=== PATIENT | female | born 1950 | race Caucasian/White ===

== ENCOUNTER 2018-12-19 13:34 | Emergency (ER) | payer OTHER, BC ==
[2018-12-19 13:37] VITALS: TEMP 97.7; BMI 25.2
--- NOTE | 2018-12-19 14:04 | PDOC ---
History of Present Illness - General Chief Complaint: Lightheaded Stated Complaint: DIZZY Time Seen by Provider: 12/19/18 13:47 - History of Present Illness Initial Comments: 12/19/18 15:37 68f with pmh of htn, hld, afib on eliquis presents to the ED with episode of lightheadedness today where she felt she was almost going to pass out for 30min. Similar episode the past couple days, similar duration, worst on . Episodes were unprovoked. She also complains of chronic pain in the back of the head and neck which got worse after being manipulated by physical therapy. Headache is no 2/10 but get get worse to 5/10 occasionally. Discomfort is now in the temporal region. Denies sensation of movement during the episodes. Denies being out side in the sun, had brunch today. Denies fever, chills, palpitation, change in vision, chest pain, sob. Past History - Past Medical History Allergies/Adverse Reactions: Allergies Allergy/AdvReac Type Severity Reaction Status Date / Time No Known Allergies Allergy Verified 12/19/18 13:37 Home Medications: Ambulatory Orders Atorvastatin Ca [Lipitor] 10 mg PO DAILY 01/03/12 Calcium Carbonate [Calcium] 600 mg PO DAILY 01/03/12 Irbesartan [Avapro (Nf)] 75 mg PO DAILY 01/03/12 Metoprolol Succinate [Toprol XL] 25 mg PO DAILY 01/03/12 Propafenone HCl [Propafenone HCl ER] 325 mg PO BID 07/24/12 Apixaban [Eliquis] 5 mg PO DAILY 12/19/18 Ranitidine HCl [Zantac] 150 mg PO BID 12/19/18 Anemia: No Asthma: No Cardiac Disorders: Yes (A-FIB) CVA: No COPD: No CHF: No GI Disorders: Yes (DIVERTICULITIS) HTN: Yes Hypercholesterolemia: Yes - Surgical History Abdominal Surgery: Yes (Hysterectomy) - Suicide/Smoking/Psychosocial Hx Smoking Status: No Smoking History: Never smoked Number of Cigarettes Smoked Daily: 0 Hx Alcohol Use: No Drug/Substance Use Hx: No Substance Use Type: None Review of Systems - Review of Systems Able to Perform ROS?: Yes Is the patient limited Malagasy proficient: No Constitutional: No: Symptoms Reported HEENTM: No: Symptoms Reported Respiratory: No: Symptoms reported Cardiac (ROS): No: Symptoms Reported ABD/GI: No: Symptoms Reported : No: Symptoms Reported Musculoskeletal: No: Symptoms Reported Integumentary: No: Symptoms Reported Neurological: Yes: See HPI All Other Systems: Reviewed and Negative *Physical Exam - Vital Signs Last Vital Signs Temp Pulse Resp BP Pulse Ox 97.7 F 61 18 142/64 97 12/19/18 13:35 12/19/18 13:35 12/19/18 13:35 12/19/18 13:35 12/19/18 13:35 - Physical Exam General Appearance: Yes: Nourished, Appropriately Dressed, Apparent Distress HEENT: positive: EOMI, KENDY, Normal ENT Inspection Neck: negative: Tender midline Respiratory/Chest: positive: Lungs Clear, Normal Breath Sounds. negative: Chest Tender, Respiratory Distress Cardiovascular: positive: Regular Rhythm, Regular Rate, S1, S2 Gastrointestinal/Abdominal: positive: Normal Bowel Sounds, Flat, Soft. negative : Tender Musculoskeletal: positive: Normal Inspection. negative: CVA Tenderness Extremity: positive: Normal Capillary Refill, Normal Inspection, Normal Range of Motion Integumentary: positive: Normal Color, Dry, Warm Neurologic: positive: Fully Oriented, Alert, Normal Mood/Affect. negative: Numbness ED Treatment Course - LABORATORY CBC & Chemistry Diagram: 12/19/18 14:58 12/19/18 14:58 Medical Decision Making - Medical Decision Making 12/19/18 15:46 68F with h/o afib presents with presyncopal episode the past 3 days 30min each. Will r/o paroxysmal arrythmia, LA, stoke vs orthostatic hypotension and vasovagal. 12/19/18 16:25 EKG: Normal sinus rhythm, Nonspecific ST and T wave abnormality. CXR: A single apical lordotic view reveals well expanded lungs with some linear scarring or atelectasis at the left base, normal mediastinum and sharp angles. The bones and soft tissues are intact. Correlation recommended. All labs within normal limit, will repeat troponin at 6pm. 12/19/18 18:50 Second troponin negative. Head CtA: normal study. OK to dc with follow up *DC/Admit/Observation/Transfer Diagnosis at time of Disposition: Pre-syncope - Discharge Dispostion Disposition: HOME Condition at time of disposition: Improved Decision to Admit order: No - Referrals Referrals: Madonna Nettles MD [Primary Care Provider] - - Patient Instructions Printed Discharge Instructions: DI for Dizziness-Nonvertigo, Combating Dizziness in Older Adults Additional Instructions: Follow up with your primary care provider within the next 2-3 days. Come back to the emergency department for any new, worsening or concerning symptom. - Post Discharge Activity
--- NOTE | 2018-12-19 14:37 | PDOC ---
Documentation entered by Dez Larose SCRIBE, acting as scribe for Kerline Martinez MD. Kerline Martinez MD: This documentation has been prepared by the Thuan aponte Daniel, SCRIBE, under my direction and personally reviewed by me in its entirety. I confirm that the documentation accurately reflects all work, treatment, procedures, and medical decision making performed by me. Attending Attestation - Resident Resident Name: Brian Escobedo - ED Attending Attestation I have performed the following: I have examined & evaluated the patient, The case was reviewed & discussed with the resident, I agree w/resident's findings & plan - HPI HPI: 12/19/18 14:38 The patient is a 68 year old female with a past medical history of afib (eliquis ), HTN, and HLD here today for evaluation of presyncopal episode. Patient reports that she had a presyncopal episode today while standing in the [employer] that last for about 30 minutes. She denies any loss of consciousness and notes 2 similar episodes in the past 2 days. She also notes a mild headache that has gotten worse since PT on (12/17/18). Patient denies Denies fever, chills. Denies chest pain, shortness of breath. Denies nausea, vomiting, diarrhea, abdominal pain. Allergies: NKA PCP: Madonna Nettles - Physicial Exam PE: 12/19/18 17:16 Agree with the resident's HPI and PE as documented in the electronic medical record. NAD, EOMI, PERRL, nl conjunctiva, anicteric; neck supple. lungs clear, RRR, abdomen soft nontender. Back nontender. MEAD x4, no focal neuro deficits. No peripheral edema. normal color for ethnicity, WWP. no calf tenderness. Alert, oriented to person time and place. No carotid bruit, CN II-XII grossly intact. Strength prox and distally 5/5 throughout. Sensation grossly intact to light touch. MEAD x4. No cerebellar signs, no dysmetria, bilateral finger to nose and heel to marroquin equal and symmetric. Speech clear. - Medical Decision Making 12/19/18 17:14 See HPI for details. Prior notes reviewed, including admissions, discharges and consultations. Vital signs reviewed, wnl. DDX near syncope: ACS, arrhythmia, anemia, dehydration, metabolic derangements, electrolyte abnormalities; carotid stenosis, dissection/aneurysm, CVA. laboratory results and imaging reviewed, basic labs and lytes wnl, UA neg/clear Cardiac panel_neg trop x2 EKG normal sinus rhythm, no interval abnormalities, narrow QRS, ST and T wave segments and morphology normal. Nonspecific T wave abnormalities ED course -interventions: IVF - 2 trop neg, no cp or syncope or sob - on reassessment - CTA neg for aneurysm/bleed, no e/o CVA on CTH. - ambulated without difficulty, neuro intact. Pt to be discharged in stable condition. Patient and family made aware of clinical impression, treatment recommendations and disposition plan, return precautions discussed (including but not limited to new or persistent/worsening symptoms, pain, fevers, or signs of infection, chest pain, respiratory distress , inability to tolerate oral intake, dehydration, syncope, or neurologic changes ). Follow up with PMD and/or specialist as recommended, follow up information provided, take medications as instructed for duration of time. continue with supportive care, avoid triggers and precipitants. All questions answered to patient's satisfaction and expressed understanding and comfort with this. At the time of discharge, the patient is alert, clinically improved, tolerating po and verbalizes understanding of instructions, satisfied with the care received and felt comfortable with the plan. Patient does not suffer from an acute life- threatening medical condition at this time and is safe for outpatient follow- up. 12/19/18 17:21 12/19/18 17:21 12/19/18 18:51 12/19/18 18:51 Heart Score/ECG Review #1 ECG reviewed & interpreted by me at: 14:00 General ECG Interpretation: Sinus Rhythm, Normal Rate, Normal Intervals Compared to previous ECG there are: No significant change 12/19/18 14:37 EKG normal sinus rhythm at 60 bpm, no interval abnormalities, narrow QRS, ST and T wave segments and morphology normal. Nonspecific T wave abnormalities
[2018-12-19 15:12] LABS: BASO % 0.7 % (0-2.0); EOS % 1.9 % (0-4.5); HEMATOCRIT 41.4 % (32.4-45.2); LYMPH % 24.3 % (8-40); MCH 32.2 pg (25.7-33.7); MCHC 33.8 g/dl (32.0-36.0); MEAN CELL VOLUME 95.5 fl (80-96); MEAN PLT VOLUME 7.2 fl (7.5-11.1); MONO % 11.7 % (3.8-10.2); NEUT % 61.4 % (42.8-82.8); RBC 4.34 M/mm3 (3.60-5.2); WHITE BLOOD COUNT 4.9 K/mm3 (4.0-10.0)
[2018-12-19 15:24] LABS: PLATELET COUNT 244 K/MM3 (134-434)
[2018-12-19 15:31] LABS: EPI CELLS 0.6 /HPF (0-5/HPF); HYALINE CASTS 0 /lpf (0-8); URINE APPEARANCE CLEAR; URINE BACTERIA 26.1 /hpf (NEGATIVE); URINE BILIRUBIN NEGATIVE (NEGATIVE); URINE COLOR YELLOW; URINE GLUCOSE (UA) NEGATIVE (NEGATIVE); URINE KETONE NEGATIVE (NEGATIVE); URINE LEUK ESTERASE TRACE (NEGATIVE); URINE NITRITE NEGATIVE (NEGATIVE); URINE PROTEIN NEGATIVE (NEGATIVE); URINE RBC 0 /hpf (0-4); URINE UROBILINOGEN 0.2 mg/dL (0.2-1.0); URINE WBC 1 /hpf (0-5)
[2018-12-19 15:40] LABS: ALBUMIN 3.9 g/dl (3.4-5.0); ALK PHOS 80 U/L (45-117); ANION GAP 8 MMOL/L (8-16); BILIRUBIN,TOTAL 0.4 mg/dL (0.2-1); BLOOD UREA NITROGEN 16.6 mg/dL (7-18); CALCIUM 9.2 mg/dL (8.5-10.1); CHLORIDE 109 mmol/L (98-107); CO2 23 mmol/L (21-32); CREATININE 0.6 mg/dL (0.55-1.3); GLUCOSE,RANDOM 96 mg/dL (74-106); SGOT/AST 17 U/L (15-37); SGPT/ALT 29 U/L (13-61); SODIUM 140 mmol/L (136-145); TOT PROT 7.3 g/dl (6.4-8.2)
[2018-12-19 16:15] VITALS: BP 130/68; PULSE 58
[2018-12-19] MEDS ORDERED: SODIUM CHLORIDE 0.9% 500 ML INFUS.BAG IV ONE (16:30)
--- NOTE | 2018-12-21 00:25 | EKG ---
Test Reason : Blood Pressure : / mmHG Vent. Rate : 060 BPM Atrial Rate : 060 BPM P-R Int : 182 ms QRS Dur : 076 ms QT Int : 428 ms P-R-T Axes : 058 018 048 degrees QTc Int : 428 ms POOR DATA QUALITY, INTERPRETATION MAY BE ADVERSELY AFFECTED NORMAL SINUS RHYTHM NONSPECIFIC ST AND T WAVE ABNORMALITY ABNORMAL ECG WHEN COMPARED WITH ECG OF 07-SEP-2012 11:17, NO SIGNIFICANT CHANGE WAS FOUND Confirmed by MD Gali, Armen ([id number]) on 12/21/2018 12:24:59 AM Referred By: Confirmed By:Armen Talbert MD
== END 2018-12-19 19:05 | disposition home or self-care (01) ==
LOC: JER 13:34
PROC: 3E0337Z Introduction of Electrolytic and Water Balance Substance into Peripheral Vein, Percutaneous Approach (ICD-10-PCS; principal; 2018-12-19)
DX: R55 Syncope and collapse (principal); R42 Dizziness and giddiness; I10 Essential (primary) hypertension; E78.00 Pure hypercholesterolemia, unspecified; I48.91 Unspecified atrial fibrillation; Z79.01 Long term (current) use of anticoagulants
CPT/HCPCS: 36415; 70450-TC; 70496-TC; 70498-TC; 71045-TC-FY; 80053; 81003; 84484; 85025; 87086; 93005; 93010; 99283-25

== ENCOUNTER 2018-12-21 19:20 | Emergency (ER) | payer OTHER, BC ==
[2018-12-21 19:24] VITALS: BP 125/62; PULSE 64; TEMP 97.9; BMI 25.2
--- NOTE | 2018-12-21 20:45 | PDOC ---
History of Present Illness - General Chief Complaint: Revisit,Radiology Variance Stated Complaint: SENT FOR ADMISSION - History of Present Illness Initial Comments: The pt is a 68F w/ a history of HTN who presents for evaluation after CTA head and neck was significant for concern of L vertebral artery lumenal narrowing versus dissection. The pt reports persistent pain in her left neck pain as well as a left sided headache. He denies any change in her symptoms since being evaluated on 12/19/18. She denies changes in vision, falls, syncope, chest pain, trouble breathing. Her neck pain is achy, intermittent, worse with movement, alleviated by rest, non-radiating. 12/21/18 21:11 Past History - Past Medical History Allergies/Adverse Reactions: Allergies Allergy/AdvReac Type Severity Reaction Status Date / Time No Known Allergies Allergy Verified 12/21/18 19:24 Home Medications: Ambulatory Orders Atorvastatin Ca [Lipitor] 10 mg PO DAILY 01/03/12 Calcium Carbonate [Calcium] 600 mg PO DAILY 01/03/12 Irbesartan [Avapro (Nf)] 75 mg PO DAILY 01/03/12 Metoprolol Succinate [Toprol XL] 25 mg PO DAILY 01/03/12 Propafenone HCl [Propafenone HCl ER] 325 mg PO BID 07/24/12 Apixaban [Eliquis] 5 mg PO DAILY 12/19/18 Ranitidine HCl [Zantac] 150 mg PO BID 12/19/18 Anemia: No Asthma: No Cardiac Disorders: Yes (A-FIB) CVA: No COPD: No CHF: No GI Disorders: Yes (DIVERTICULITIS) HTN: Yes Hypercholesterolemia: Yes - Surgical History Abdominal Surgery: Yes (Hysterectomy) - Suicide/Smoking/Psychosocial Hx Smoking Status: No Smoking History: Never smoked Number of Cigarettes Smoked Daily: 0 Hx Alcohol Use: No Drug/Substance Use Hx: No Substance Use Type: None Review of Systems - Review of Systems Able to Perform ROS?: Yes Comments:: GENERAL/CONSTITUTIONAL: No fever or chills. No weakness HEAD, EYES, EARS, NOSE AND THROAT: No change in vision. No ear pain or discharge. No sore throat CARDIOVASCULAR: No chest pain or shortness of breath RESPIRATORY: Denies cough, hemoptysis GASTROINTESTINAL: No nausea, vomiting, diarrhea or constipation GENITOURINARY: No dysuria, frequency, or change in urination SKIN: No rash NEUROLOGIC: No vertigo, loss of consciousness, or change in strength/sensation ENDOCRINE: No increased thirst. No abnormal weight change HEMATOLOGIC/LYMPHATIC: No anemia, easy bleeding, or history of blood clots. ALLERGIC/IMMUNOLOGIC: No hives or skin allergy 12/21/18 20:45 Is the patient limited Peruvian proficient: No *Physical Exam - Vital Signs Last Vital Signs Temp Pulse Resp BP Pulse Ox 97.9 F 64 18 125/62 97 12/21/18 19:22 12/21/18 19:22 12/21/18 19:22 12/21/18 19:22 12/21/18 19:22 - Physical Exam Comments: GENERAL: Awake, alert, and oriented to person/place/time, in no acute distress HEAD: No signs of trauma, normocephalic, atraumatic EYES: PERRLA, EOMI, sclera anicteric, conjunctiva clear ENT: Hearing grossly normal, nares patent, oropharynx clear without exudates. Moist mucosa LUNGS: No distress, speaks in full sentences, clear to auscultation bilaterally HEART: Regular rate and rhythm, normal S1 and S2, no murmurs appreciated, peripheral pulses normal and equal bilaterally ABDOMEN: Soft, nontender, normoactive bowel sounds. No guarding, no rebound EXTREMITIES: Normal inspection, Normal range of motion, no edema. No clubbing or cyanosis NEUROLOGICAL: Cranial nerves II through XII grossly intact. Normal speech, normal gait, no focal sensorimotor deficits SKIN: Warm, Dry 12/21/18 20:45 Medical Decision Making - Medical Decision Making The pt is a 68F who presents for evaluation 2/2 radiology read variance concerning for left proximal vertebral artery luminal stenosis versus dissection ED Course MRA head/neck w/ patent vertebral arteries w/o dissection Discomfort likely MSK Plan for D/C w/ PCP f/u Referral for OMM also given Discharge instructions and return precautions given Pt in agreement and verbalized understanding Dispo: home *DC/Admit/Observation/Transfer Diagnosis at time of Disposition: Neck pain - Discharge Dispostion Disposition: HOME Condition at time of disposition: Stable Decision to Admit order: No - Referrals Referrals: Madonna Nettles MD [Primary Care Provider] - - Patient Instructions Printed Discharge Instructions: DI for Neck Pain Additional Instructions: You were seen in the Emergency Department for evaluation of neck pain. Your MRA was negative for vertebral artery dissection or narrowing. Review the handout provided at discharge and a referral was given for [facility]. Follow up with your primary care provider. Return to the Emergency Department if you develop fevers/chills, chest pain, trouble breathing, lightheadedness, inability to tolerate food, changes in strength/sensation, worsening symptoms, or any new/concerning symptoms. - Post Discharge Activity
[2018-12-21] MEDS ORDERED: ACETAMINOPHEN 325 MG TABLET (FP) PO ONE (21:29)
[2018-12-21] MEDS ORDERED: ACETAMINOPHEN 325 MG TABLET (FP) ONE (21:37)
--- NOTE | 2018-12-22 00:07 | PDOC ---
Documentation entered by Ana Del Rio SCRIBE, acting as scribe for Tami Rodriguez DO. Tami Rodriguez DO: This documentation has been prepared by the Eliane aponte Adrianna, SCRIBE, under my direction and personally reviewed by me in its entirety. I confirm that the documentation accurately reflects all work, treatment, procedures, and medical decision making performed by me. Attending Attestation - Resident Resident Name: [email or web address] - ED Attending Attestation I have performed the following: I have examined & evaluated the patient, The case was reviewed & discussed with the resident, I agree w/resident's findings & plan - HPI HPI: The patient is a 68 year old female, with a significant PMH of HTN, HLD, diverticulitis, and Afib (on Eliquis), who presents to the ED for evaluation of abnormal findings of CTA of head and neck. Patient was informed that her CTA demonstrated left vertebral artery lumenal narrowing vs. dissection. She was advised to come to the ED for MRI. Patient endorses nck pain, but denies any new complaints. Allergies: NKA, NKDA Surgical History: Hysterectomy Social History: None reported PCP: Dr. Nettles 12/21/18 22:50 - Physicial Exam PE: Agree with resident exam. 12/21/18 22:50 - Medical Decision Making 12/22/18 00:04 68-year-old female sent for further imaging to rule out possible vertebral artery dissection MRA of the brain and neck show no evidence of dissection in the questionable area On exam patient is point tender over the right transverse process of C3/C4 reproducing chief complaints Patient advised to follow-up with the OMT clinic at [facility] for further evaluation and to refrain from aggressive physical therapy at this time Previous lightheadedness and nausea presents with pain are not present at this time
[2018-12-22] MEDS ORDERED: ACETAMINOPHEN 325 MG TABLET (FP) PO ONE (00:20)
--- NOTE | 2018-12-22 14:45 | EKG ---
Test Reason : Blood Pressure : / mmHG Vent. Rate : 056 BPM Atrial Rate : 056 BPM P-R Int : 206 ms QRS Dur : 074 ms QT Int : 430 ms P-R-T Axes : 056 039 053 degrees QTc Int : 414 ms POOR DATA QUALITY, INTERPRETATION MAY BE ADVERSELY AFFECTED SINUS BRADYCARDIA NONSPECIFIC ST ABNORMALITY ABNORMAL ECG WHEN COMPARED WITH ECG OF 19-DEC-2018 13:59, NO SIGNIFICANT CHANGE WAS FOUND Confirmed by MD HOWARD, JH ([id number]) on 12/22/2018 2:44:39 PM Referred By: Confirmed By:JH LAWRENCE MD
== END 2018-12-22 00:45 | disposition home or self-care (01) ==
LOC: JER 19:20
DX: R93.7 Abnormal findings on diagnostic imaging of other parts of musculoskeletal system (principal); M54.2 Cervicalgia
CPT/HCPCS: 70544-TC; 70547-TC; 93005; 93010; 99282-25

== ENCOUNTER 2020-05-04 17:48 | Inpatient (IN) | payer OTHER, BC ==
[2020-05-04 17:56] VITALS: BMI 24.1
[2020-05-04 19:02] LABS: BASO % 0.5 % (0-2.0); EOS % 1.7 % (0-4.5); HEMATOCRIT 45.6 % (32.4-45.2); HEMOGLOBIN 15.5 GM/dL (10.7-15.3); LYMPH % 23.8 % (8-40); MCH 32.1 pg (25.7-33.7); MCHC 34.1 g/dl (32.0-36.0); MEAN CELL VOLUME 94.4 fl (80-96); MEAN PLT VOLUME 7.6 fl (7.5-11.1); MONO % 10.1 % (3.8-10.2); NEUT % 63.9 % (42.8-82.8); PLATELET COUNT 247 K/MM3 (134-434); RBC 4.83 M/mm3 (3.60-5.2); RDW 13.4 % (11.6-15.6); WHITE BLOOD COUNT 6.5 K/mm3 (4.0-10.0)
[2020-05-04 19:09] LABS: INR 1.07 (0.83-1.09); PROTHROMBIN TIME (PATIENT) 12.9 SEC (9.7-13.0)
[2020-05-04 19:12] LABS: ACTIVATED PTT 42.3 SECONDS (25.2-36.5)
[2020-05-04 19:21] LABS: CHLORIDE 104 mmol/L (98-107); POTASSIUM 3.8 mmol/L (3.5-5.1); SODIUM 137 mmol/L (136-145)
[2020-05-04 19:24] LABS: ALBUMIN 4.4 g/dl (3.4-5.0); ANION GAP 7 MMOL/L (8-16); BLOOD UREA NITROGEN 17.2 mg/dL (7-18); CALCIUM 10.3 mg/dL (8.5-10.1); CO2 26 mmol/L (21-32); GLUCOSE,RANDOM 97 mg/dL (74-106); MAGNESIUM 2.2 mg/dL (1.8-2.4)
[2020-05-04 19:27] LABS: SGOT/AST 14 U/L (15-37); SGPT/ALT 24 U/L (13-61)
[2020-05-04 19:28] LABS: CREATININE 0.8 mg/dL (0.55-1.3)
[2020-05-04 19:29] LABS: BILIRUBIN,TOTAL 0.6 mg/dL (0.2-1); TOT PROT 8.3 g/dl (6.4-8.2)
[2020-05-04 19:30] LABS: ALK PHOS 91 U/L (45-117)
[2020-05-04] MEDS ORDERED: ASPIRIN 325 MG TABLET PO ONE (19:48)
[2020-05-04] MEDS ORDERED: LACTATED RINGERS SOLUTION 1000 ML INFUS.BAG IV ONE (19:50)
[2020-05-04] MEDS ORDERED: ASPIRIN 325 MG ENTERIC COATED TABLET (FP) ONE (19:56)
[2020-05-04] MEDS ORDERED: SODIUM CHLORIDE 1,000 ML IV SCH (22:00)
[2020-05-04] MEDS ORDERED: PATIENT'S OWN MEDICATION (NON-FORMULARY) (Alendronate Sodium [Fosamax] 1 TAB) PO SCH (23:30)
[2020-05-04] MEDS ORDERED: APIXABAN 5 MG TABLET ONE (23:39)
[2020-05-04] MEDS: APIXABAN 5 MG TABLET PO SCH (23:45)
[2020-05-05 07:13] LABS: CHLORIDE 106 mmol/L (98-107); POTASSIUM 3.6 mmol/L (3.5-5.1); SODIUM 139 mmol/L (136-145)
[2020-05-05 07:16] LABS: CALCIUM 8.9 mg/dL (8.5-10.1)
[2020-05-05 07:17] LABS: ALBUMIN 3.7 g/dl (3.4-5.0); ANION GAP 6 MMOL/L (8-16); BLOOD UREA NITROGEN 13.8 mg/dL (7-18); CO2 27 mmol/L (21-32); GLUCOSE,RANDOM 90 mg/dL (74-106); MAGNESIUM 2.2 mg/dL (1.8-2.4)
[2020-05-05 07:19] LABS: HEMATOCRIT 41.5 % (32.4-45.2); HEMOGLOBIN 13.9 GM/dL (10.7-15.3); MCH 31.4 pg (25.7-33.7); MCHC 33.4 g/dl (32.0-36.0); MEAN CELL VOLUME 93.9 fl (80-96); MEAN PLT VOLUME 7.3 fl (7.5-11.1); PLATELET COUNT 231 K/MM3 (134-434); RBC 4.42 M/mm3 (3.60-5.2); RDW 13.3 % (11.6-15.6); WHITE BLOOD COUNT 5.5 K/mm3 (4.0-10.0)
[2020-05-05 07:20] LABS: CREATININE 0.6 mg/dL (0.55-1.3); PHOSPHOROUS 3.5 mg/dL (2.5-4.9); SGOT/AST 10 U/L (15-37); SGPT/ALT 20 U/L (13-61)
[2020-05-05 07:22] LABS: BILIRUBIN,TOTAL 0.8 mg/dL (0.2-1); TOT PROT 7.1 g/dl (6.4-8.2)
[2020-05-05 07:23] LABS: ALK PHOS 73 U/L (45-117)
[2020-05-05] MEDS ORDERED: FAMOTIDINE 20 MG TABLET ONE (09:10)
[2020-05-05] MEDS ORDERED: APIXABAN 5 MG TABLET ONE (09:10)
[2020-05-05 09:13] VITALS: BP 119/79; PULSE 90; TEMP 98.2
[2020-05-05] MEDS: APIXABAN 5 MG TABLET PO SCH (09:13)
[2020-05-05] MEDS ORDERED: LOSARTAN POTASSIUM 25 MG TABLET PO SCH (10:00)
[2020-05-05] MEDS ORDERED: FAMOTIDINE 20 MG TABLET PO SCH (10:00)
[2020-05-05] MEDS ORDERED: metoPROLOL SUCCINATE 25 MG TAB.SR.24H (FP) PO SCH (10:30)
[2020-05-05] MEDS ORDERED: metoPROLOL SUCCINATE 25 MG TAB.SR.24H (FP) ONE (11:07)
[2020-05-05] MEDS ORDERED: ATORVASTATIN CA 10 MG TABLET (FP) PO SCH (22:00)
== END 2020-05-05 15:44 | disposition home or self-care (01) | DRG 310 ==
LOC: JER 17:48 → OBSVTOIN 19:48 → JERBED 19:48
PROVIDERS: ADMIT Hospitalist; ATTEND Internal Medicine
DX: R00.1 Bradycardia, unspecified (principal); I10 Essential (primary) hypertension; E78.5 Hyperlipidemia, unspecified; K59.09 Other constipation; K21.9 Gastro-esophageal reflux disease without esophagitis; R42 Dizziness and giddiness; I48.0 Paroxysmal atrial fibrillation; I25.10 Atherosclerotic heart disease of native coronary artery without angina pectoris; R00.2 Palpitations; R55 Syncope and collapse; R07.89 Other chest pain
CPT/HCPCS: 36415; 71045-TC-FY; 80053; 82550; 83735; 84100; 84443; 84484; 85025; 85027; 85610; 85730; 93005; 93010; 99285-25; C9803; U0003